=== PATIENT | female | born 1930 | race Caucasian/White ===

== ENCOUNTER 2016-07-27 10:01 | Emergency (ER) | payer OTHER, MEDICARE ==
[~2016-07-27 10:01] MED LIST: ALENDRONATE SOD70 M1 PO; ASPIR 8181 MG PO; AUGMENTIN 500-1 EACH PO; BACTRIM DS 8001 TAB PO; BENICAR HCT 201 EACH PO; BENICAR HCT 251 TAB PO; BENICAR HCT 401 EACH PO; BUSPIRONE HCL15 M1 PO; CALTRATE 600600 MG PO; CIPRO 500MG TA500 MG PO; CIPRO500 M1 PO; DAILY VITAMINS1 TAB PO; ESCITALOPRAM OX10 MG PO; FISH OIL500 MG PO; GLYBURIDE2.5 M1 PO; MACROBID100 MG PO; MELOXICAM15 MG PO; NEXIUM40 M1 PO; OCUVITE1 TA1 PO; PERCOCET 325 MG1 TA2 PO; PYRIDIUM100 MG PO; ROBITUSSIN W/CO10 ML PO; VYTORIN 10 MG-11 TAB PO; VYTORIN 10-401 EACH PO; ZITHROMAX Z PA250 MG PO; [UNRECOGNIZED DRUG - CODE] PO
[2016-07-27 10:47] LABS: ABSOLUTE BASOPHIL COUNT 0 /CUMM (0.0-0.2); ABSOLUTE EOSINOPHIL COUNT 0.1 /CUMM (0.0-0.7); ABSOLUTE GRANULOCYTE CT 10.8 /CUMM (1.4-6.5); ABSOLUTE LYMPH COUNT 1.7 /CUMM (1.2-3.4); ABSOLUTE MONOCYTE COUNT 0.5 /CUMM (0.10-0.60); BASOPHIL % 0.4 % (0.0-2.0); EOSINOPHIL % 0.8 % (0-5); GRANULOCYTE % 82.3 % (42.2-75.2); HEMATOCRIT 44.3 % (37-47); MEAN CORPUSCULAR HGB 31.7 PG (27.0-31.0); MEAN CORPUSCULAR HGB CONC 34.2 G/DL (33.0-37.0); MEAN CORPUSCULAR VOLUME 92.6 FL (81.0-99.0); MEAN PLATELET VOLUME 8.3 FL (7.4-10.4); PLATELET COUNT 206 /CUMM (130-400); RBC DISTRIBUTION WIDTH 12.6 % (11.5-14.5); RED BLOOD CELL CT 4.79 /CUMM (4.20-5.40); WHITE BLOOD CELL COUNT 13.1 /CUMM (4.8-10.8)
--- NOTE | 2016-07-27 11:09 | ED GENERAL ADULT ---
History of Present Illness General Chief Complaint: General Adult Stated Complaint: +N, FEVER, DEHYDRATION Source: patient, family (daughter) Exam Limitations: no limitations Vital Signs & Intake/Output Vital Signs & Intake/Output Vital Signs Date Time Temp Pulse Resp B/P Pulse O2 O2 Flow FiO2 Ox Delivery Rate 07/27 1254 97.8 84 18 167/86 96 07/27 1018 97.0 105 22 123/74 96 Room Air Allergies Coded Allergies: NO KNOWN ALLERGIES (10/21/14) Reconcile Medications Alendronate Sodium 70 MG TAB 1 TAB PO QW BONE LOSS (Reported) Aspirin (Ecotrin) 81 MG TABLET.DR 1 TAB PO DAILY HEART HEALTH (Reported) Augmentin (Augmentin 500-125 Tablet) 1 EACH TABLET 1 TAB PO BID URINE INFECTION Buspirone HCl 15 MG TABLET 1 TAB PO DAILY ANXIETY (Reported) I TAB/DAY FOE A WEEK THEN EVERY OTHER DAY FOR A WEEK Calcium Carbonate (Caltrate 600) 600 MG TAB 2 TAB PO DAILY BONES (Reported) Cu/Se/Vit A/Vit C/Vit E/Zinc (Ocuvite) 1 TAB TAB 1 TAB PO DAILY EYE HEALTH ( Reported) Escitalopram Oxalate 10 MG TABLET 1 TAB PO DAILY ANXIETY (Reported) Esomeprazole (Nexium) 40 MG CAPSULE.DR 1 CAP PO BID GERD (Reported) Ezetimibe/Simvastatin (Vytorin 10-40 MG Tablet) 1 EACH TABLET 1 TAB PO DAILY CHOLESTEROL (Reported) [FIBER-CON] TAB 1 TAB PO DAILY SUPPLEMENT (Reported) Glyburide 2.5 MG TABLET 1 TAB PO DAILY DM (Reported) Meloxicam 15 MG TABLET 1 TAB PO DAILY OSTEOARTHRITIS (Reported) Multivitamin, Minerals, and 16 (Daily Vitamins W/Calcium/Iron) 1 TAB TAB 1 TAB PO DAILY SUPPLEMENT (Reported) Olmesartan/Hydrochlorothiazide (Benicar Hct 40-12.5 MG Tablet) 1 EACH TABLET 1 TAB PO DAILY HTN (Reported) SALMON OIL/OMEGA-3 FATTY ACIDS (Fish Oil 500 MG Softgel) 500 MG-100 MG CAPSULE 1 CAP PO DAILY SUPPLEMENT (Reported) Triage Note: PER PT NAUSEA AND GENERALLY NOT FEELING WELL X 2-3 DAYS NO VOMITING FEVER OR DIARRHEA BUT FEELS DEHYDRATED. Triage Nurses Notes Reviewed? yes HPI: This patient is an 86-year-old female with past medical history hypertension, hyperlipidemia, and diabetes who presented to the emergency department today accompanied by her daughter for multiple complaints. The patient reported that approximately one week ago she was diagnosed with a urine infection. However, her daughter reported that it was not a urine infection, it was a yeast infection; she was using vaginal suppositories and creams. The patient reported that the symptoms have cleared. She denied any urinary burning, urgency, frequency, or blood in the urine. The patient also reported that last week she was having, "cold symptoms." She reported that her face felt, "full." She also reported that she had a dry cough that was worse from her baseline. No sputum production. She also reported that she had some thick nasal drainage. She reported that the symptoms have cleared up. However, over the last 2 days the patient has felt nauseous with no vomiting. She reported intermittent hot and cold. She reported that she has had a decreased appetite over the last 2 days and feels dehydrated. She reported that she drinks approximately 2 bottles of water daily. The patient denied any headaches, chest pain, difficult breathing, numbness or tingling in her extremities, vomiting, abdominal pain, constipation, diarrhea, blood in the stool, or any other associated symptoms. (EZEQUIEL MONTES PA-C) Past History Travel History Traveled to [place] past 21 day No Medical History Any Pertinent Medical History? 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 No (EZEQUIEL MONTES PA-C) Review of Systems Review of Systems Constitutional: Reports: see HPI. EENTM: Reports: see HPI. Respiratory: Reports: see HPI. Cardiovascular: Reports: no symptoms. GI: Reports: see HPI. Genitourinary: Reports: see HPI. Musculoskeletal: Reports: no symptoms. Skin: Reports: no symptoms. Neurological/Psychological: Reports: no symptoms. All Other Systems: Reviewed and Negative (EZEQUIEL MONTES PA-C) Physical Exam Physical Exam General Appearance: well developed/nourished, no apparent distress, alert, awake Comments: Well-developed well-nourished person in no acute distress HEENT: Normal EENT exam, moist mucous membranes Pupils equally round and reactive to light. Neck: Supple, no lymphadenopathy Back: Normal gait. Normal inspection. No CVA tenderness Cardiovascular: Regular rate and rhythm with no murmurs, rubs, or gallops Respiratory: Chest nontender. No respiratory distress. Breath sounds clear to auscultation bilaterally with no wheezes, rales, rhonchi Abdomen: Soft and nondistended. Normoactive bowel sounds. Tympanic in all 4 quadrants. Nontender. No rebound or guarding. No peritoneal signs. No organomegaly Extremity: Normal and equal pulses. Neuro: Alert oriented x3, cranial nerves II through XII grossly intact. Skin: No appreciable rash on exposed skin, skin is warm and dry. Psych: Mood and affect is normal Core Measures ACS in differential dx? Yes CVA/TIA Diagnosis: No Severe Sepsis Present: No Septic Shock Present: No (EZEQUIEL MONTES PA-C) Progress Differential Diagnoses I considered the following diagnoses in my evaluation of the patient: [Viral syndrome, influenza, common cold, gastroenteritis, GERD, urinary tract infection , ACS, PE] Plan of Care: Orders Procedure Date/time Status FingerStick- Glucose 07/27 1210 Active CULTURE,URINE 07/27 1126 Active RAPID VIRAL INFLUENZA A 07/27 1119 Complete URINALYSIS 07/27 1019 Complete TROPONIN LEVEL 07/27 1019 Complete LIPASE 07/27 1019 Complete LACTIC ACID 07/27 1019 Complete COMPREHENSIVE METABOLIC PANEL 07/27 1019 Complete CBC WITHOUT DIFFERENTIAL 07/27 1019 Complete AMYLASE 07/27 1019 Complete Laboratory Tests 07/27/16 1319: Lactic Acid Cancelled 07/27/16 1128: Urine Color YEL, Urine Clarity CLEAR, Urine pH 6.5, Ur Specific Crescent 1.010, Urine Protein NEG, Urine Ketones 15 H, Urine Nitrite NEG, Urine Bilirubin NEG, Urine Urobilinogen 0.2, Ur Leukocyte Esterase NEG, Ur Microscopic EXAM NOT REQUIRED, Urine Hemoglobin NEG, Urine Glucose >=1000 H 07/27/16 1030: Anion Gap 11, Estimated GFR > 60, BUN/Creatinine Ratio 17.5, Glucose 341 H, Lactic Acid 1.4, Calcium 9.4, Total Bilirubin 1.2, AST 47 H, ALT 72 H, Alkaline Phosphatase 81, Troponin I < 0.01, Total Protein 6.5, Albumin 4.2, Globulin 2.3, Albumin/Globulin Ratio 1.8, Amylase < 30 L, Lipase 200, CBC w Diff NO MAN DIFF REQ, RBC 4.79, MCV 92.6, MCH 31.7 H, RDW 12.6, MPV 8.3, Gran % 82.3 H, Lymphocytes % 12.7 L, Monocytes % 3.8, Eosinophils % 0.8, Basophils % 0.4, Absolute Granulocytes 10.8 H, Absolute Lymphocytes 1.7, Absolute Monocytes 0.5, Absolute Eosinophils 0.1, Absolute Basophils 0, PUBS MCHC 34.2 Microbiology 07/27 1128 URINE ROUT: Urine Culture - RECD Initial ED EKG: none Comments: 07/27/2016 11:54:31 AM: Patient is reporting relief of her nausea with Zofran. 07/27/2016 12:19:50 PM: I was at the patient's bedside reevaluation she is currently resting comfortably on the stretcher. Nontoxic appearing. Serum glucose 341. The patient reported that she does not take any medication for her diabetes, "I just checked my blood sugar." Symptoms are likely due to elevated blood sugar. This patient received 1 L of IV fluids and now her finger stick glucose is 274. We'll give this patient ate units of subcutaneous insulin. Counseled this patient on the importance of following up with her primary care physician to discuss maintenance medication for her diabetes. She did agree to plan. 07/27/2016 1:07:37 PM: Dr. Gardiner is currently at the patient's bedside for face-to -face evaluation. (SIMON TO,EZEQUIEL) Departure Departure Disposition: HOME OR SELF CARE Condition: Stable Clinical Impression Primary Impression: Hyperglycemia Referrals: ADAIR ARMANDO,DANIELA Dhillon (PCP/Family) Additional Instructions: Please take all previously prescribed medications as directed. Be sure to stay hydrated. Check your blood sugar levels daily. Please call to make a follow-up appointment with your primary care physician; as discussed, you may need to start a medication to better control your diabetes. Return to the emergency department for any worsening symptoms or concerns. Departure Forms: Customer Survey General Discharge Information (EZEQUIEL MONTES PA-C) PA/AIRCRAFT PARTS ASSEMBLER Co-Sign Statement Statement: ED Attending supervision documentation- [X] I saw and evaluated the patient. I have also reviewed all the pertinent lab results and diagnostic results. I agree with the findings and the plan of care as documented in the PA's/AIRCRAFT PARTS ASSEMBLER's documentation. [] I have reviewed the ED Record and agree with the PA's/AIRCRAFT PARTS ASSEMBLER's documentation. [] Additions or exceptions (if any) to the PAs/AIRCRAFT PARTS ASSEMBLER's note and plan are summarized below: [] (ALFREDO ARMANDO,SEYMOUR Reed) Critical Care Note Critical Care Note Critical Care Time: non-applicable (SIMON TO,EZEQUIEL)
[2016-07-27 12:54] VITALS: BP 167/86
== END 2016-07-27 13:29 ==
LOC: ERH 10:01
PROVIDERS: Emergency Medicine
DX: R73.9 Hyperglycemia, unspecified (principal); I10 Essential (primary) hypertension; E78.5 Hyperlipidemia, unspecified; E11.65 Type 2 diabetes mellitus with hyperglycemia
CPT/HCPCS: 81003; 87086; 87804; 87804-59; 96360; 96372; J1815; J3101

== ENCOUNTER 2017-07-26 11:00 | Emergency (ER) | payer OTHER, MEDICARE ==
[~2017-07-26] VITALS: Ht 154.9 cm; Wt 68.0 kg
[~2017-07-26 11:00] MED LIST changes: -ALENDRONATE SOD70 M1 PO; +ALENDRONATE SOD70 M2 PO; +CALTRATE 600 +1 EACH PO; -CALTRATE 600600 MG PO; -DAILY VITAMINS1 TAB PO; +DAILY VITE1 EACH PO; +FIBER500 MG PO; +FISH OIL 500 M1 EAC1 PO; -FISH OIL500 MG PO; -GLYBURIDE2.5 M1 PO; +GLYBURIDE5 M1 PO; +JANUVIA100 M1 PO; +KEFLEX500 M1 PO; +MAGNESIUM OXID400 M1 PO; +MELOXICAM15 M1 PO; -MELOXICAM15 MG PO; +OCUVITE EYE +1 EACH PO; -[UNRECOGNIZED DRUG - CODE] PO
--- NOTE | 2017-07-26 11:09 | ED NEURO DEFICIT/STROKE ---
History of Present Illness General Chief Complaint: Neuro Symptoms/ Deficit Stated Complaint: NUMBNESS/WEAKNESS TO L SIDE OF BODY Source: patient, family, old records Exam Limitations: no limitations Vital Signs & Intake/Output Vital Signs & Intake/Output Vital Signs Date Time Temp Pulse Resp B/P B/P Pulse O2 O2 Flow FiO2 Mean Ox Delivery Rate 07/26 1238 79 18 164/72 97 Room Air 07/26 1220 98 Room Air 07/26 1106 98.4 88 18 180/100 98 Room Air Allergies Coded Allergies: NO KNOWN ALLERGIES (10/21/14) Reconcile Medications Alendronate Sodium 70 MG TABLET 1 TAB PO QFRI BONE (Reported) in the morning, at least 30 minutes before the first food, beverage, or medication of the day Buspirone HCl 15 MG TABLET 1 TAB PO BID ANXIETY (Reported) Calcium Carbonate/Vitamin D3 (Caltrate 600 + D Tablet) 600 MG-800 TABLET 2 TAB PO DAILY VITAMIN SUPPORT (Reported) Escitalopram Oxalate 10 MG TABLET 1 TAB PO QAM ANXIETY (Reported) Esomeprazole (Nexium) 40 MG CAPSULE.DR 1 CAP PO BID GERD (Reported) Ezetimibe/Simvastatin (Vytorin 10-40 MG Tablet) 1 EACH TABLET 1 TAB PO DAILY CHOLESTEROL (Reported) Glyburide 5 MG TABLET 1 TAB PO DAILY DIABETES (Reported) Magnesium Oxide 400 MG TABLET 1 TAB PO QPM SUPPLEMENT (Reported) Meloxicam 15 MG TABLET 1 TAB PO QPM PAIN (Reported) Methylcellulose (Fiber) 500 MG TABLET 1 TAB PO QPM SUPPLEMENT (Reported) Multivitamin (Daily Tracy) 1 EACH TABLET 1 TAB PO QAM VITAMIN SUPPORT ( Reported) Mv-Mn/FA/Vit K1/Lycop/Lut/Zeax (Ocuvite Eye + Multi Tablet) 200 MCG-15 MCG-150 MCG-5 MG-1 MG TABLET 1 TAB PO QPM EYE (Reported) Olmesartan/Hydrochlorothiazide (Benicar Hct 40-12.5 MG Tablet) 1 EACH TABLET 1 TAB PO DAILY HTN (Reported) Rialto-3/Dha/Epa/Fish Oil (Fish Oil 500 MG Softgel) 60 MG-90 MG-500 MG CAPSULE 1 CAP PO QPM SUPPLEMENT (Reported) Oxybutynin Chloride (Oxybutynin Chloride ER) 5 MG TAB.ER.24 1 TAB PO QAM BLADDER (Reported) Sitagliptin Phosphate (Januvia) 100 MG TABLET 1 TAB PO QAM DIABETES (Reported ) Triage Note: 87 YO FEMALE TO TRIAGE WITH DAUGHTERS. PT C.O NUMBESS AND WEAKNESS TO L HAND/ARM/FACE AND L LEG. STATES IT STARTED 3 DAYS AGO AND HAS BEEN COMING AND GOING. DENIES PAIN/HEADACHES. PT NOTED WITH BRUISING UNDERNEATH EYES BILATERALLY, STATES SHE FELL BACK IN DECMEBER +HEADSTRIKE, WAS SEEN AFTER FALL. NEUROS INTACT IN TRIAGE. PT TO ER ROOM 3. Triage Nurses Notes Reviewed? yes Onset: Abrupt Duration: day(s): (FEW) Timing: recent history New Weakness: none Associated Symptoms: paresthesia HPI: 87 year old female presents to the ER for chief complaint of left facial, left arm and left leg numbness this morning and have been on and off for the past 3 days. Episodes last a few seconds. THey are not associated with weakness. No headache, blurred vision, confusion, slurred speech or difficulty swallowing. No ataxia. Currently symptom free. She had a fall last week per her family, visible healing bruises to her face on both sides. Past History Travel History Traveled to [place] past 21 day No Medical History Any Pertinent Medical History? 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 No Review of Systems Review of Systems Constitutional: Denies: see HPI, fever. EENTM: Reports: no symptoms. Respiratory: Denies: cough, short of breath, sputum production. Cardiovascular: Denies: chest pain. GI: Denies: abdominal pain, nausea, vomiting. Genitourinary: Reports: no symptoms. Musculoskeletal: Denies: back pain, joint pain, joint swelling, muscle pain, muscle stiffness, neck pain. Skin: Reports: no symptoms. Neurological/Psychological: Reports: anxiety, numbness, paresthesia. Denies: ataxia, depressed, headache, tingling, tremors, weakness. Hematologic/Endocrine: Denies: bruising, bleeding, polyuria, polydipsia. Immunologic/Allergic: Denies: splenectomy. All Other Systems: Reviewed and Negative Physical Exam Physical Exam General Appearance: well developed/nourished, alert, awake, anxious, mild distress Head: HEALING BRUISES UNDER BOTH EYES, NO PAIN TO PALPATION, PERRLA Eyes: Bilateral: normal appearance, PERRL, EOMI. Ears, Nose, Throat: normal ENT inspection, hearing grossly normal Neck: normal inspection, supple, full range of motion Respiratory: normal breath sounds, chest non-tender, no respiratory distress Cardiovascular: regular rate/rhythm Peripheral Pulses: 2+ radial (R), 2+ radial (L) Gastrointestinal: normal bowel sounds, soft, non-tender Back: normal inspection, normal range of motion Extremities: normal range of motion Psychiatric: awake, alert, oriented x 3 Cranial Nerves: normal hearing, normal speech, PERRL Coordination/Gait: normal finger to nose Motor/Sensory: no motor/sensory deficits, NO SENSORY DEFICIT ELICITED. Skin: intact, normal color, warm/dry Core Measures CVA/TIA Diagnosis: No Sepsis Present: No Sepsis Focused Exam Completed? No Progress Differential Diagnosis: stroke, TIA, SUBDURAL HEMATOMA Plan of Care: Orders Procedure Date/time Status TROPONIN LEVEL 07/26 1120 Complete PARTIAL THROMBOPLASTIN TIME 07/26 1120 Complete PROTHROMBIN TIME 07/26 1120 Complete COMPREHENSIVE METABOLIC PANEL 07/26 1120 Complete CBC WITHOUT DIFFERENTIAL 07/26 1120 Complete EKG 07/26 1120 Active Laboratory Tests 07/26/17 1210: Anion Gap 13, Estimated GFR > 60, BUN/Creatinine Ratio 22.5, Glucose 138 H, Calcium 9.3, Total Bilirubin 0.7, AST 27, ALT 51, Alkaline Phosphatase 59, Troponin I < 0.01, Total Protein 6.5, Albumin 4.1, Globulin 2.4, Albumin/ Globulin Ratio 1.7, PT 12.1, INR 1.15, APTT 26, CBC w Diff NO MAN DIFF REQ, RBC 4.41, MCV 92.2, MCH 32.3 H, RDW 12.9, MPV 8.6, Gran % 82.1 H, Lymphocytes % 12.0 L, Monocytes % 5.3, Eosinophils % 0.4, Basophils % 0.2, Absolute Granulocytes 9.1 H, Absolute Lymphocytes 1.3, Absolute Monocytes 0.6, Absolute Eosinophils 0, Absolute Basophils 0, PUBS MCHC 35.0 PATIENT AMBULATORY IN THE ER WITHOUT DISTRESS. NO ATAXIA, NO WEAKNESS. PATIENT WILL FOLLOW UP WITH NEUROLOGY OUTPATIENT. Diagnostic Imaging: Viewed by Me: CT Scan. Discussed w/RAD: CT Scan. 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 Fall, head trauma. COMPARISON: CT head, face, cervical spine 07/21/2017. TECHNIQUE: Contiguous axial imaging was performed from the skull base to vertex without intravenous administration of contrast. DLP: 587 mGy-cm FINDINGS: There is no acute abnormality from prior study There is no intracranial hemorrhage, hematoma, or extra-axial fluid collection. The ventricles are normal in size. There is no hydrocephalus, edema , or mass effect. The peguero-white matter differentiation appears similar to prior study. There is no visible acute territorial infarct or mass lesion. The calvarium appears intact. There is no pneumocephalus or orbital emphysema. The visualized sinuses and middle ears and mastoid air cells show no significant mucosal thickening. There are no air-fluid levels. IMPRESSION: No acute intracranial abnormality. DICTATED BY: Sam Dos Santos MD DATE/TIME DICTATED:1208 BISCUIT FACTORY WORKER:OPHELIA DATE/TIME TRANSCRIBED:07/26/171208 CONFIDENTIAL, DO NOT COPY WITHOUT APPROPRIATE AUTHORIZATION. <Electronically signed in Other Vendor System> SIGNED BY: Sam Dos Santos MD 07/26/17 1225 Initial ED EKG: NSR, LVH Rhythm Strip: normal sinus rhythm Departure Departure Time of Disposition: 1344 Disposition: HOME OR SELF CARE Condition: Stable Clinical Impression Primary Impression: Paresthesias Referrals: Naman ARMANDO,Mike Benito MD,Vincent Dhillon (PCP/Family) Additional Instructions: FOLLOW UP WITH YOUR DOCTOR AND WITH THE NEUROLOGIST LISTED WELL WITH YOUR PRIMARY CARE DOCTOR MONITOR YOUR BLOOD PRESSURE AT HOME AND KEEP A LOG OF THE NUMBERS RETRUN TO THE ER FOR ANY CHANGING OR WORSENING SYMPTOMS, WORSENING NUMBNESS, WEAKNESS, DIFFICULTY SPEAKING, DIFFICULTY SWALLOWING Departure Forms: Customer Survey General Discharge Information
--- NOTE | 2017-07-26 12:25 | CT SCAN REPORT ---
EXAMINATION: CT HEAD WITHOUT CONTRAST CLINICAL INFORMATION: Left-sided face, arm, leg numbness. Fall, head trauma. COMPARISON: CT head, face, cervical spine 07/21/2017. TECHNIQUE: Contiguous axial imaging was performed from the skull base to vertex without intravenous administration of contrast. DLP: 587 mGy-cm FINDINGS: There is no acute abnormality from prior study There is no intracranial hemorrhage, hematoma, or extra-axial fluid collection. The ventricles are normal in size. There is no hydrocephalus, edema, or mass effect. The peguero-white matter differentiation appears similar to prior study. There is no visible acute territorial infarct or mass lesion. The calvarium appears intact. There is no pneumocephalus or orbital emphysema. The visualized sinuses and middle ears and mastoid air cells show no significant mucosal thickening. There are no air-fluid levels. IMPRESSION: No acute intracranial abnormality.
[2017-07-26 12:38] VITALS: BP 164/72
[2017-07-26 12:41] LABS: ABSOLUTE BASOPHIL COUNT 0 /CUMM (0.0-0.2); ABSOLUTE EOSINOPHIL COUNT 0 /CUMM (0.0-0.7); ABSOLUTE GRANULOCYTE CT 9.1 /CUMM (1.4-6.5); ABSOLUTE LYMPH COUNT 1.3 /CUMM (1.2-3.4); ABSOLUTE MONOCYTE COUNT 0.6 /CUMM (0.10-0.60); BASOPHIL % 0.2 % (0.0-2.0); EOSINOPHIL % 0.4 % (0-5); GRANULOCYTE % 82.1 % (42.2-75.2); HEMATOCRIT 40.7 % (37-47); MEAN CORPUSCULAR HGB 32.3 PG (27.0-31.0); MEAN CORPUSCULAR VOLUME 92.2 FL (81.0-99.0); MEAN PLATELET VOLUME 8.6 FL (7.4-10.4); PLATELET COUNT 169 /CUMM (130-400); RBC DISTRIBUTION WIDTH 12.9 % (11.5-14.5); RED BLOOD CELL CT 4.41 /CUMM (4.20-5.40); WHITE BLOOD CELL COUNT 11.1 /CUMM (4.8-10.8)
[2017-07-26] MEDS ORDERED: OXYBUTYNIN CHLOR5 M3 PO (12:42)
[2017-07-26 12:54] LABS: PT 12.1 SEC (9.4-12.5); PTT 26 SEC (25-37)
== END 2017-07-26 14:14 ==
LOC: ERH 11:00
PROVIDERS: Emergency Medicine
DX: R20.2 Paresthesia of skin (principal)
CPT/HCPCS: 93005; 93010